=== PATIENT | male | born 1955 | race American Indian/Alaskan Native ===

== ENCOUNTER 2017-01-13 14:46 | Outpatient (CLI) | payer OTHER ==
--- NOTE | 2017-01-13 15:19 | XRay Report ---
XRAY RIGHT KNEE FOUR VIEWS: 01/13/17 14:46:00 CLINICAL: Right knee pain. FINDINGS: No fracture or dislocation. Mild medial joint space osteoarthritis with small osteophytes. Patellofemoral joint osteoarthritis with small superior and inferior osteophytes.Large patellar enthesophytes. Infrapatellar anterior soft tissue edema. No joint effusion. IMPRESSION: Mild osteoarthritis. Quadriceps and patellar enthesopathy. Anterior soft tissue edema but no joint effusion.
== END 2017-01-13 14:47 | disposition home or self-care (01) ==
LOC: SPVIMAG 14:46
PROVIDERS: ATTEND Orthopaedic Surgery
DX: M17.11 Unilateral primary osteoarthritis, right knee (principal); M76.51 Patellar tendinitis, right knee